=== PATIENT | male | born 1995 | race Caucasian/White ===

== ENCOUNTER 2021-08-22 17:33 | Emergency (ER) | payer OTHER ==
[~2021-08-22] VITALS: Ht 177.8 cm; Wt 88.6 kg
[2021-08-22 17:42] VITALS: BP 151/94
--- NOTE | 2021-08-22 17:49 | NUR ---
PT AMB TO BED 7.
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
[2021-08-22] MEDS ORDERED: BACITRACIN OINT 500 UNITS/GM PKT TP ONE (18:10)
[2021-08-22] MEDS ORDERED: LIDOCAINE MPF 1% 10 MG/ML VIAL INJ ONE (18:10)
--- NOTE | 2021-08-22 18:55 | NUR ---
PT'S WOUND IRRIGATED WITH WARM WATER. PA NOTIFIED.
--- NOTE | 2021-08-22 19:00 | NUR ---
PA AT BEDSIDE.
[2021-08-22] MEDS ORDERED: BACI1PAC6 TP (19:15)
--- NOTE | 2021-08-22 19:19 | NUR ---
GAVE REPORT TO TJ SARGENT.
[2021-08-22 20:52] VITALS: BP 118/78
--- NOTE | 2021-08-22 20:52 | NUR ---
Patient discharged with v/s stable. Written and verbal after care instructions given on [facility] and explained. Patient alert, oriented and verbalized understanding of instructions. Ambulatory with steady gait. All questions addressed prior to discharge. ID band removed. Patient advised to follow up with PMD. Rx of Bacitracin Zinc given.
--- NOTE | 2021-08-22 20:52 | NUR ---
The patient's care was reviewed and supervised by Mouna Nunez RN.
== END 2021-08-22 20:52 | disposition home or self-care (01) ==
LOC: MED 17:33
DX: S01.112A Laceration without foreign body of left eyelid and periocular area, initial encounter (principal); Z79.899 Other long term (current) drug therapy; W22.8XXA Striking against or struck by other objects, initial encounter; Y93.55 Activity, bike riding; Y92.89 Other specified places as the place of occurrence of the external cause; Y99.8 Other external cause status
CPT/HCPCS: 12013; 99282; J2001